=== PATIENT | female | born 1960 | race African-American/Black ===

== ENCOUNTER → 2022-04-23 | Day surgery (SDC) | payer MEDICAID ==
[~2022-04-23] VITALS: Ht 30.5 cm; Wt 0.5 kg
[~2022-04-23] MED LIST: BALANCED SALT IRRIG SOLN COMB1 500ML OP NR; CYCLOPENTOLATE HCL 1% OPHTH DROPS 2ML RIGHTEYE SCH; HYALURONATE SODIUM 10 MG/ML 0.55ML SYRINGE IO ONE; LACTATED RINGERS 1,000 ML IV SCH; PHENYLEPHRINE 2.5% OPHTH 15 DROP/ML BOTTLE RIGHTEYE SCH; TROPICAMIDE 1% OPHTH DROPS 15ML RIGHTEYE SCH
== END | disposition home or self-care (01) ==
LOC: OR 10:32
PROVIDERS: ATTEND Ophthalmology
DX: H25.89 Other age-related cataract (principal); Z53.8 Procedure and treatment not carried out for other reasons; Z20.822 Contact with and (suspected) exposure to COVID-19; Z88.8 Allergy status to other drugs, medicaments and biological substances
CPT/HCPCS: 87426; C9803; J3490

== ENCOUNTER → 2024-06-01 | Day surgery (SDC) | payer MEDICAID ==
[~2024-06-01] VITALS: Ht 175.3 cm; Wt 90.7 kg
[~2024-06-01] MED LIST changes: +ATOR20TA PO; +CYCLOPENTOLATE HCL 1% OPHTH DROPS 2ML RIGHTEYE ONE; -CYCLOPENTOLATE HCL 1% OPHTH DROPS 2ML RIGHTEYE SCH; +DIAZEPAM 5 MG/ML 2ML SYR ONE; +FENTANYL CITRATE/PF 50MCG/ML 2ML VIAL ONE; -HYALURONATE SODIUM 10 MG/ML 0.55ML SYRINGE IO ONE; +HYALURONATE SODIUM 10MG/ML 0.55ML SYRINGE IO ONE; +HYALURONATE SODIUM 10MG/ML 0.85ML SYRINGE IO ONE; +HYDROMORPHONE HCL/PF 1MG/ML INJ IV PRN; +LABETALOL 5MG/ML 4ML INJ IV PRN; +MEPERIDINE HCL/PF 25MG/ML CPJ IV PRN; +MIDAZOLAM HCL 2 MG/2 ML VIAL ONE; +ONDANSETRON HCL 4MG/2ML INJ IV PRN; -PHENYLEPHRINE 2.5% OPHTH 15 DROP/ML BOTTLE RIGHTEYE SCH; +PHENYLEPHRINE HCL 10% OPHTH DROPS 5ML RIGHTEYE ONE; +PROPOFOL 10MG/ML 100ML 100 ML IV ONE; +PROPOFOL 200MG/20ML VIAL IV ONE; +TROPICAMIDE 1% OPHTH DROPS 15ML RIGHTEYE ONE; -TROPICAMIDE 1% OPHTH DROPS 15ML RIGHTEYE SCH
[2024-06-01 08:25] LABS: HEMATOCRIT. 40.4 % (36.0-48.0); HEMOGLOBIN. 13.3 g/dL (12.0-16.0); LYMPHOCYTES % 45.1 % (20.0-50.0); MEAN CORPUSCULAR HEMOGLOBIN 32.1 pg (28.0-32.0); MEAN CORPUSCULAR HGB CONC 32.9 g/dL (31.0-37.0); MEAN CORPUSCULAR VOLUME 97.7 fL (81.0-99.0); MEAN PLATELET VOLUME 6.8 fl (7.4-10.4); MONOCYTES % 5.7 % (2.0-8.0); NEUTROPHILS % 45.2 % (40.0-76.0); PLATELET 338 x1000/uL (130-400); RED BLOOD CELL COUNT 4.14 mill/uL (4.2-5.4); WHITE BLOOD COUNT 8.4 x1000/uL (4.5-11.0)
[2024-06-01 08:33] LABS: CHLORIDE 108 mEq/L (98-107); POTASSIUM 3.6 mEq/L (3.5-5.1); SODIUM 143 mEq/L (136-145)
[2024-06-01 08:34] LABS: CARBON DIOXIDE 30 mEq/L (21-32)
[2024-06-01 08:35] LABS: CALCIUM 9.6 mg/dL (8.7-10.4)
[2024-06-01 08:39] LABS: CREATININE 0.8 mg/dL (0.6-1.0)
[2024-06-01 08:40] LABS: GLUCOSE 110 mg/dL (70-105); UREA NITROGEN BLOOD 10 mg/dL (9-23)
[2024-06-01] MEDS: DIAZEPAM 5 MG/ML 2ML SYR IV NR (09:49)
== END | disposition home or self-care (01) ==
LOC: OR 07:46
PROVIDERS: ATTEND Ophthalmology
DX: H25.89 Other age-related cataract (principal); E78.5 Hyperlipidemia, unspecified; K21.9 Gastro-esophageal reflux disease without esophagitis; Z90.49 Acquired absence of other specified parts of digestive tract; Z98.890 Other specified postprocedural states; Z79.899 Other long term (current) drug therapy
CPT/HCPCS: 66984; 80048; 85025; 36415; 93005; J3010; J2250; J2704 ×2; J3490 ×2; V2632

== ENCOUNTER → 2024-08-24 | Day surgery (SDC) | payer MEDICAID ==
[~2024-08-24] VITALS: Ht 175.3 cm; Wt 90.7 kg
[~2024-08-24] MED LIST changes: +BALANCED SALT IRRIG SOLN 15ML ONE; +CYCLOPENTOLATE HCL 1% OPHTH DROPS 2ML LEFTEYE NR; -CYCLOPENTOLATE HCL 1% OPHTH DROPS 2ML RIGHTEYE ONE; -HYALURONATE SODIUM 10MG/ML 0.85ML SYRINGE IO ONE; +PHENYLEPHRINE HCL 10% OPHTH DROPS 5ML LEFTEYE NR; -PHENYLEPHRINE HCL 10% OPHTH DROPS 5ML RIGHTEYE ONE; -PROPOFOL 10MG/ML 100ML 100 ML IV ONE; -PROPOFOL 200MG/20ML VIAL IV ONE; +TROPICAMIDE 1% OPHTH DROPS 15ML LEFTEYE NR; -TROPICAMIDE 1% OPHTH DROPS 15ML RIGHTEYE ONE
[2024-08-24 10:27] LABS: CHLORIDE 106 mEq/L (98-107); POTASSIUM 3.9 mEq/L (3.5-5.1); SODIUM 142 mEq/L (136-145)
[2024-08-24 10:28] LABS: CALCIUM 9.6 mg/dL (8.7-10.4); CARBON DIOXIDE 27 mEq/L (21-32)
[2024-08-24 10:33] LABS: CREATININE 0.7 mg/dL (0.6-1.0); GLUCOSE 102 mg/dL (70-105); UREA NITROGEN BLOOD 8 mg/dL (9-23)
[2024-08-24 10:58] LABS: BASOPHILS % 0.7 % (0.0-2.0); EOSINOPHILS % 3.3 % (0.0-5.0); HEMATOCRIT. 39.5 % (36.0-48.0); HEMOGLOBIN. 13.3 g/dL (12.0-16.0); MEAN CORPUSCULAR HEMOGLOBIN 31.9 pg (28.0-32.0); MEAN CORPUSCULAR HGB CONC 33.6 g/dL (31.0-37.0); MEAN CORPUSCULAR VOLUME 94.7 fL (81.0-99.0); MEAN PLATELET VOLUME 7.4 fl (7.4-10.4); MONOCYTES % 5.6 % (2.0-8.0); NEUTROPHILS % 33.4 % (40.0-76.0); PLATELET 304 x1000/uL (130-400); RED BLOOD CELL COUNT 4.17 mill/uL (4.2-5.4); RED CELL DISTRIBUTION WIDTH 14.3 % (11.6-14.6); WHITE BLOOD COUNT 5.3 x1000/uL (4.5-11.0)
== END | disposition home or self-care (01) ==
LOC: OR 09:40
PROVIDERS: ATTEND Ophthalmology
DX: H25.22 Age-related cataract, morgagnian type, left eye (principal); K21.9 Gastro-esophageal reflux disease without esophagitis; E78.00 Pure hypercholesterolemia, unspecified; Z79.899 Other long term (current) drug therapy; Z98.890 Other specified postprocedural states; Z88.8 Allergy status to other drugs, medicaments and biological substances
CPT/HCPCS: 80048; 85025; 36415; 66984; J3010; J3490 ×2; J2250; V2632